=== PATIENT | female | born 2000 | race Caucasian/White ===

== ENCOUNTER 2023-09-30 14:14 | Emergency (ER) | payer OTHER, SELFPAY ==
--- NOTE | ~2023-09-30 | XR_ITS ---
EXAMINATION: XR SHOULDER, RIGHT CLINICAL INFORMATION: Shoulder dislocation COMPARISON: None available. TECHNIQUE: Two views of the right shoulder. FINDINGS: No shoulder fracture is seen. The humeral head may be slightly anterior to the glenoid but visualization is suboptimal secondary to suboptimal views. XR/XR shoulder RT min 2V IMPRESSION: No fracture is seen. The humeral head may be slightly anterior to the glenoid but visualization is suboptimal. If there is still clinical concern for dislocation, recommend full 4 view shoulder series
--- NOTE | ~2023-09-30 | XR_ITS ---
EXAMINATION: XR SHOULDER, RIGHT CLINICAL INFORMATION: Post reduction radiographs. COMPARISON: Radiographs dated 09/30/2023 at 2:37 PM. TECHNIQUE: 4 radiographs of the right shoulder. FINDINGS: The glenohumeral joint is intact status post reduction. There is no fracture. The acromioclavicular joint remains intact. The regional soft tissue is normal in appearance. The visualized right lung is clear. XR/XR shoulder RT min 2V IMPRESSION: There is no fracture or dislocation status post right shoulder reduction.
[2023-09-30] MEDS: Morphine Sulfate 4 MG/ML CARTRIDGE IVPUSH ×2 (14:24→14:35)
[2023-09-30 14:31] VITALS: BP 102/80; PULSE 82; RESP 20
[2023-09-30 14:35] VITALS: BP 138/79; BP 141/72; PULSE 111; PULSE 120; RESP 16; TEMP 36.6; O2SAT 98; BMI 19.5
[2023-09-30] MEDS: 0.9 % Sodium Chloride 1,000 ML 999 ML IV (14:44)
--- NOTE | 2023-09-30 15:28 | ED_ITS ---
HPI - Extremity Problem General Chief complaint: Extremity Injury, Upper Stated complaint: RUE PAIN,? DISLOCATION PER EMS Time Seen by Provider: 09/30/23 14:18 Source: patient Mode of arrival: ambulatory Limitations: no limitations History of Present Illness HPI Narrative: 23-year-old female with past medical history of right shoulder dislocation presents to ED for right shoulder dislocation. Patient states she was training in the [employer] and she was lifting a bag above her head with the right arm and while swinging her shoulder came out. Patient brought to the ED immediately. patient denies any blunt trauma. Related Data Previous Rx's ?Medication ?Instructions ?Recorded naproxen 500 mg tablet 500 mg PO BID PRN pain 7 days #14 09/30/23 tabs Allergies Allergy/AdvReac Type Severity Reaction Status Date / Time No Known Allergies Allergy Verified 09/30/23 14:37 Review of Systems 2 Review of Systems: right shoulder dislocation Yes all other systems are reviewed and are negative PMFSH Social History Social History Advance Directives: No Advance Directives Information Provided: Yes Physical Exam 2 Vital Signs: Vital Signs: Last Vital Signs Temp 0 F L 09/30/23 17:51 Pulse 0 L 09/30/23 17:51 Resp 16 09/30/23 17:51 BP 00/00 L 09/30/23 17:51 Pulse Ox 99 09/30/23 17:30 O2 Del Method Room Air 09/30/23 17:30 BMI result Body Mass Index 19.5 Const: General: cooperative, healthy appearing, comfortable, no acute distress, well developed, alert, awake and Physically active O rientation/consciousness: oriented to person, oriented to place, oriented to time and patient oriented x3 HEENT: Head: Yes normal to inspection, Yes No palpable skull fracture present, Yes normocephalic, Yes atraumatic and No abrasion Eyes: General: appearance normal, both eyes and all related structures Neck: Neck: Yes normal visual inspection, Yes full ROM, Yes no lymphadenopathy, Yes no meningeal signs, Yes trachea midline, Yes supple, No anterior neck swelling and No tender Chest: Chest palpation & inspection: normal inspection of the chest and normal palpation of entire chest wall Resp: Effort & Inspection: normal respiratory effort and able to speak in complete sentences Auscultation: clear to auscultation bilaterally Cardio: Jugular venous distension: no JVD Heart sounds: S1 normal heart sound present and S2 normal heart sound present GI: Inspection: Yes normal to inspection and No abdominal wall ecchymosis P alpation (GI): Soft to palpation, not firm, nontender, no guarding and not rigid : General: No CVA tenderness and Yes no CVA tenderness Back/Spine/Pelvis: Back: no CVA tenderness, No CVA tenderness and No back tenderness Skin: General skin exam: no rashes or lesions noted and elasticity normal Neuro: General: oriented to person, oriented to place, oriented to time, patient oriented x3, gait normal, tone normal, moves all extremities, Normal light touch and pain sensation, no meningeal signs, no focal motor deficits, CN's II-XI intact bilaterally and normal sensation to monofilament Extrem: General: Yes normal to inspection and Yes full ROM Shoulder/upper arm images: 1. positive for tenderness on palpation and anterior deformity. Negative for ecchymosis or crepitus. Vascular neuro exam intact. Motor exam limited due to pain. Psych: Appearance: grossly normal, well kempt and not disheveled Medications Administered Discontinued Medications Generic Name Dose Route Start Last Admin Trade Name Freq PRN Reason Stop Dose Admin Sodium Chloride 1,000 mls @ 999 mls/hr 09/30/23 14:41 09/30/23 16:18 Ns IV 09/30/23 15:41 Infused .Q1H1M STA Infusion Morphine Sulfate 4 mg 09/30/23 14:18 09/30/23 14:24 Morphine Sulfate 4 Mg/Ml Cartridge IVPUSH 09/30/23 14:19 4 mg ONCE ONE Administration Protocol Morphine Sulfate 4 mg 09/30/23 14:29 09/30/23 14:35 Morphine Sulfate 4 Mg/Ml Cartridge IVPUSH 09/30/23 14:30 4 mg ONCE ONE Administration Protocol Medical Decision Making Medical Decision Making MDM Narrative: 23-year-old female presents for right shoulder dislocation. Patient given 6 of morphine with shoulder reduction attempt at bedside. After 2 successful tries patient heard a clunk and feels better. Patient placed in sling. patient has complete range of motion of shoulder without any pain after reduction. Sent for x-ray. 3:41pm: X-ray shows slight humeral head anterior displacement from glenoid but patient has complete range of motion of shoulder without any pain. [facility] recommend four view. 5:39pm: patient had repeat x-rays done. Still waiting for official read. Patient would like to leave. Patient has complete range of motion of shoulder without any pain in all directions. Patient does not want wait for official results. Patient will follow-up with the orthopedic. Patient has to leave. Patient given copy 1st x-ray results will be called with. patient discharged with sling and informed to stay in sling for 7 days. Differential Diagnosis Differential Diagnoses: The differential diagnosis associated with the presentation includes (shoulder fracture, dislocation, subluxation) Admission/Observation Consideration of admission/observation: Escalation of care including admission/observation considered Independent Interpretation I performed an independent interpretation of an: Plain X-Ray Radiology Impression Discussion of test interpretation with radiology: I have reviewed the radiologist's reading. Independent Historian Clinical information obtained from an independent historian. History obtained from or confirmed by: Other (patient) External Record Review External record reviewed: Other (prior visis) Prescription Management I considered prescription management with: Pain Medication Critical Care Time Critical Care Time Critical Care Time: Yes Total Critical Care Time: 60 Attestation: patient shoulder dilscoation. given morphine 6mg for pain. Shoulder reduction succesfful. FLuids ordered. xray ordered Discharge Plan Discharge Clinical Impression: Dislocated shoulder Patient Disposition: Home, Self-Care Instructions: Shoulder Dislocation (ED) Additional Instructions: return to the ED immediately for dislocation, severe pain, stiffness, redness, bluish black discoloration, red streaks, or any other concerning symptoms. You will need follow-up with orthopedic surgeon in [place] and your primary care provider. you may need repeat MRI. You will need physical therapy Prescriptions: New naproxen 500 mg tablet 500 mg PO BID PRN (Reason: pain) 7 Days Qty: 14 0RF Stand Alone Forms: Work/School Release Interventions: ED Discharge Assessment Last Done: 09/30/23 17:51 Discharge Date/Time: 09/30/23 17:52 Print Language: Thai
[2023-09-30 15:39] VITALS: RESP 16
[2023-09-30 15:40] VITALS: RESP 16
[2023-09-30 17:30] VITALS: BP 120/73; PULSE 78; RESP 16; TEMP 36.5; O2SAT 99
[2023-09-30 17:51] VITALS: BP 00/00; PULSE 0; RESP 16; TEMP -17.7; TEMP 0
== END 2023-09-30 17:52 | disposition home or self-care (01) ==
PROVIDERS: Emergency Provider Student in an Organized Health Care Education/Training Program
DX: S43.004A Unspecified dislocation of right shoulder joint, initial encounter (principal); M25.511 Pain in right shoulder; X50.0XXA Overexertion from strenuous movement or load, initial encounter; Y93.9 Activity, unspecified; Y92.9 Unspecified place or not applicable; Y99.8 Other external cause status
CPT/HCPCS: 23650; 73030; 96361; 96374; 99284; J2270